=== PATIENT | male | born 1950 | race Caucasian/White ===

== ENCOUNTER 2020-01-16 15:33 | Inpatient (IN) ==
[2020-01-16 16:48] LABS: Basophils % 0.3 % (0.0-0.8); Hematocrit 45.6 VOL% (42.0-52.0); Hemoglobin 15.9 GM/DL (14.0-18.0); Immature Granulocytes % 0.7 %; Immature Granulocytes Absolute 0.02 #; Lymphocytes # 0.6 10*3/uL (1.4-4.0); Lymphocytes % 21.4 % (21.2-54.2); Mean Corpuscular HGB Conc 34.9 GM/DL (32-36); Mean Corpuscular Volume 89.4 FL (87-102); Mean Platelet Volume 10.3 FL (9.6-12.0); Monocytes % 13.7 % (1.7-12.7); Neutrophils % 63.9 % (38.7-73.9); Platelet Count 96 T/CUMM (130-400); Red Cell Distribution Width 11.6 % (9.3-17.3)
[2020-01-16 17:09] LABS: PT Patient Result 10.9 SECS (9.8-11.9)
[2020-01-16 17:26] LABS: Albumin 2.9 G/DL (3.4-5.0); Bilirubin,Total 0.9 MG/DL (0.2-1.0); Calcium 9.5 MG/DL (8.5-10.1); Ferritin 769.9 ng/ml (26-388); Total Protein 6.1 G/DL (6.4-8.3)
[2020-01-16] MEDS ORDERED: ZALEPLON 5 MG CAPSULE PO PRN (17:48)
[2020-01-16] MEDS ORDERED: DEXTROSE 50% 25 GM/50 ML VIAL IV PRN (17:48)
[2020-01-16] MEDS ORDERED: GLUCAGON 1 MG VIAL IM PRN (17:48)
[2020-01-16 17:50] LABS: Atypical Lymphocytes Few; Band Neutrophils 3 % (0-10); Lymphocytes 17 % (20-55); Segmented Neutrophils 71 % (50-85); Smudge Cells Few; Total Cells Counted 100
[2020-01-16 17:51] LABS: Platelet Estimate Decreased
[2020-01-16] MEDS: DEXAMETHASONE 10 MG/1 ML VIAL IV SCH (22:21)
[2020-01-16] MEDS: ENOXAPARIN 40 MG/0.4 ML SYRINGE SUBCUT SCH (22:21)
[2020-01-16] MEDS: cefTRIAXone 1,000 MG in SYRINGE 1 EACH IV SCH (22:22)
[2020-01-16] MEDS: SODIUM CHLORIDE 0.9% 1,000 ML IV SCH (22:35)
[2020-01-16] MEDS: AZITHROMYCIN INJ 500 MG in SODIUM CHLORIDE 0.9% 250 ML IV SCH (22:38)
[2020-01-16] MEDS: ACETAMINOPHEN 325 MG TABLET PO PRN (22:40)
[2020-01-17] MEDS: ALBUTEROL INHALER 18 GM INH SCH ×4 (01:46→19:48)
[2020-01-17 05:22] LABS: Basophils % 0.5 % (0.0-0.8); Hematocrit 44.9 VOL% (42.0-52.0); Hemoglobin 15.7 GM/DL (14.0-18.0); Immature Granulocytes % 0.5 %; Immature Granulocytes Absolute 0.01 #; Lymphocytes # 0.6 10*3/uL (1.4-4.0); Lymphocytes % 26.2 % (21.2-54.2); Mean Corpuscular Volume 90.3 FL (87-102); Mean Platelet Volume 9.9 FL (9.6-12.0); Monocytes % 7.9 % (1.7-12.7); Neutrophils % 64.9 % (38.7-73.9); Platelet Count 94 T/CUMM (130-400); Red Blood Count 4.97 MC/CUMM (3.8-5.5); Red Cell Distribution Width 11.8 % (9.3-17.3); White Blood Count 2.1 T/CUMM (4-12)
[2020-01-17 05:48] LABS: Albumin 2.7 G/DL (3.4-5.0); Calcium 10.2 MG/DL (8.5-10.1); Ferritin 799.4 ng/ml (26-388); Osmolality,Calculated 279.7 MOS/KG (273-304); Total Protein 6.5 G/DL (6.4-8.3)
[2020-01-17 05:49] LABS: Band Neutrophils 2 % (0-10); Lymphocytes 17 % (20-55); Microcytosis Slight; Platelet Estimate Decreased; Segmented Neutrophils 73 % (50-85); Total Cells Counted 100
[2020-01-17] MEDS: SODIUM CHLORIDE 0.9% 1,000 ML IV SCH ×3 (10:11→21:53)
[2020-01-17] MEDS: ZINC SULFATE 220 MG CAPSULE PO SCH (10:12)
[2020-01-17] MEDS: PANTOPRAZOLE 40 MG TABLET PO SCH (10:12)
[2020-01-17] MEDS: DEXAMETHASONE 10 MG/1 ML VIAL IV SCH (11:08)
[2020-01-17] MEDS: cefTRIAXone 1,000 MG in SYRINGE 1 EACH IV SCH (18:22)
[2020-01-17] MEDS: AZITHROMYCIN INJ 500 MG in SODIUM CHLORIDE 0.9% 250 ML IV SCH (18:22)
[2020-01-17] MEDS: ENOXAPARIN 40 MG/0.4 ML SYRINGE SUBCUT SCH (20:23)
[2020-01-18] MEDS: ALBUTEROL INHALER 18 GM INH SCH ×4 (01:45→19:28)
[2020-01-18] MEDS: SODIUM CHLORIDE 0.9% 1,000 ML IV SCH ×3 (01:49→15:18)
[2020-01-18 07:37] LABS: Hematocrit 40.7 VOL% (42.0-52.0); Hemoglobin 14.4 GM/DL (14.0-18.0); Immature Granulocytes % 0.3 %; Immature Granulocytes Absolute 0.02 #; Lymphocytes # 0.8 10*3/uL (1.4-4.0); Lymphocytes % 13.1 % (21.2-54.2); Mean Corpuscular HGB Conc 35.4 GM/DL (32-36); Mean Corpuscular Volume 89.8 FL (87-102); Monocytes % 10.1 % (1.7-12.7); Neutrophils % 76.5 % (38.7-73.9); Red Blood Count 4.53 MC/CUMM (3.8-5.5); Red Cell Distribution Width 11.7 % (9.3-17.3); White Blood Count 6.3 T/CUMM (4-12)
[2020-01-18 07:47] LABS: Platelet Count 117 T/CUMM (130-400)
[2020-01-18 07:59] LABS: Albumin 2.4 G/DL (3.4-5.0); Calcium 9.9 MG/DL (8.5-10.1); Ferritin 689.8 ng/ml (26-388); Total Protein 5.8 G/DL (6.4-8.3)
[2020-01-18] MEDS: DEXAMETHASONE 10 MG/1 ML VIAL IV SCH (08:20)
[2020-01-18] MEDS: PANTOPRAZOLE 40 MG TABLET PO SCH (08:21)
[2020-01-18] MEDS: AZITHROMYCIN 250 MG TABLET PO SCH (08:21)
[2020-01-18 08:52] LABS: Sedimentation Rate-Westergren 30 MM/HR (0-20)
[2020-01-18] MEDS: cefTRIAXone 1,000 MG in SYRINGE 1 EACH IV SCH (17:16)
[2020-01-18] MEDS: ENOXAPARIN 40 MG/0.4 ML SYRINGE SUBCUT SCH (20:55)
[2020-01-19] MEDS: ALBUTEROL INHALER 18 GM INH SCH ×4 (00:23→20:10)
[2020-01-19] MEDS: ACETAMINOPHEN 325 MG TABLET PO PRN ×2 (00:24→11:27)
[2020-01-19] MEDS: SODIUM CHLORIDE 0.9% 1,000 ML IV SCH ×2 (04:29→17:50)
[2020-01-19 06:12] LABS: Basophils % 0.1 % (0.0-0.8); Hematocrit 39.2 VOL% (42.0-52.0); Hemoglobin 13.8 GM/DL (14.0-18.0); Immature Granulocytes % 0.6 %; Immature Granulocytes Absolute 0.04 #; Lymphocytes % 14.2 % (21.2-54.2); Mean Corpuscular HGB Conc 35.2 GM/DL (32-36); Mean Corpuscular Volume 89.5 FL (87-102); Mean Platelet Volume 10.3 FL (9.6-12.0); Monocytes % 7.6 % (1.7-12.7); Neutrophils % 77.5 % (38.7-73.9); Platelet Count 131 T/CUMM (130-400); Red Blood Count 4.38 MC/CUMM (3.8-5.5); Red Cell Distribution Width 11.8 % (9.3-17.3); White Blood Count 7.1 T/CUMM (4-12)
[2020-01-19 06:36] LABS: Albumin 2.3 G/DL (3.4-5.0); Bilirubin,Total 0.8 MG/DL (0.2-1.0); Ferritin 692.6 ng/ml (26-388); Osmolality,Calculated 283.1 MOS/KG (273-304); Total Protein 5.7 G/DL (6.4-8.3)
[2020-01-19 06:37] LABS: Hypochromasia Slight; Microcytosis 1+; Platelet Estimate Adequate
[2020-01-19 07:37] LABS: Sedimentation Rate-Westergren 33 MM/HR (0-20)
[2020-01-19] MEDS: ZINC SULFATE 220 MG CAPSULE PO SCH (08:24)
[2020-01-19] MEDS: PANTOPRAZOLE 40 MG TABLET PO SCH (08:24)
[2020-01-19] MEDS: DEXAMETHASONE 10 MG/1 ML VIAL IV SCH (08:24)
[2020-01-19] MEDS: AZITHROMYCIN 250 MG TABLET PO SCH (08:25)
[2020-01-19] MEDS: ONDANSETRON 4 MG/2 ML VIAL IV PRN (11:37)
[2020-01-19] MEDS: cefTRIAXone 1,000 MG in SYRINGE 1 EACH IV SCH (17:39)
[2020-01-19] MEDS: ENOXAPARIN 40 MG/0.4 ML SYRINGE SUBCUT SCH (20:10)
[2020-01-20] MEDS: ALBUTEROL INHALER 18 GM INH SCH ×4 (01:49→20:05)
[2020-01-20] MEDS: ACETAMINOPHEN 325 MG TABLET PO PRN ×3 (02:02→19:44)
[2020-01-20 06:23] LABS: Basophils % 0.1 % (0.0-0.8); Hematocrit 40.7 VOL% (42.0-52.0); Lymphocytes # 0.8 10*3/uL (1.4-4.0); Mean Corpuscular HGB Conc 34.4 GM/DL (32-36); Mean Corpuscular Volume 91.7 FL (87-102); Monocytes % 5.4 % (1.7-12.7); Neutrophils % 85.5 % (38.7-73.9); Platelet Count 146 T/CUMM (130-400); Red Blood Count 4.44 MC/CUMM (3.8-5.5); Red Cell Distribution Width 11.9 % (9.3-17.3); White Blood Count 10.2 T/CUMM (4-12)
[2020-01-20] MEDS: SODIUM CHLORIDE 0.9% 1,000 ML IV SCH ×2 (06:34→09:06)
[2020-01-20 06:49] LABS: Anisocytosis Slight; Platelet Estimate Adequate
[2020-01-20 06:50] LABS: Albumin 2.2 G/DL (3.4-5.0); Bilirubin,Total 1.1 MG/DL (0.2-1.0); Ferritin 1050.3 ng/ml (26-388); Spherocytes Few; Total Protein 5.8 G/DL (6.4-8.3)
[2020-01-20 07:25] LABS: Sedimentation Rate-Westergren 43 MM/HR (0-20)
[2020-01-20] MEDS: PANTOPRAZOLE 40 MG TABLET PO SCH (08:25)
[2020-01-20] MEDS: DEXAMETHASONE 10 MG/1 ML VIAL IV SCH (08:25)
[2020-01-20] MEDS: PIPERACILLIN/TAZOBACTAM 3,375 MG in SODIUM CHLORIDE 0.9% 100 ML IV SCH ×2 (08:26→17:03)
[2020-01-20] MEDS ORDERED: REMDESIVIR 200 MG in SODIUM CHLORIDE 0.9% 210 ML IV ONE (11:00)
[2020-01-20] MEDS: ONDANSETRON 4 MG/2 ML VIAL IV PRN (19:44)
[2020-01-20] MEDS: ENOXAPARIN 40 MG/0.4 ML SYRINGE SUBCUT SCH (20:05)
[2020-01-21] MEDS: PIPERACILLIN/TAZOBACTAM 3,375 MG in SODIUM CHLORIDE 0.9% 100 ML IV SCH ×3 (00:39→16:56)
[2020-01-21] MEDS: ALBUTEROL INHALER 18 GM INH SCH ×4 (00:39→20:31)
[2020-01-21 06:33] LABS: Ferritin 1261.6 ng/ml (26-388)
[2020-01-21 07:18] LABS: Basophils % 0.2 % (0.0-0.8); Hematocrit 43.7 VOL% (42.0-52.0); Hemoglobin 14.8 GM/DL (14.0-18.0); Immature Granulocytes % 1.3 %; Immature Granulocytes Absolute 0.16 #; Lymphocytes # 0.6 10*3/uL (1.4-4.0); Lymphocytes % 4.9 % (21.2-54.2); Mean Corpuscular HGB Conc 33.9 GM/DL (32-36); Mean Corpuscular Volume 92.4 FL (87-102); Monocytes % 4.4 % (1.7-12.7); Neutrophils % 89.2 % (38.7-73.9); Platelet Count 166 T/CUMM (130-400); Red Blood Count 4.73 MC/CUMM (3.8-5.5); Red Cell Distribution Width 11.9 % (9.3-17.3); White Blood Count 12.2 T/CUMM (4-12)
[2020-01-21 08:11] LABS: Albumin 2.1 G/DL (3.4-5.0); Bilirubin,Total 0.9 MG/DL (0.2-1.0); Calcium 10.5 MG/DL (8.5-10.1); Osmolality,Calculated 286.1 MOS/KG (273-304); Total Protein 6.1 G/DL (6.4-8.3)
[2020-01-21 08:27] LABS: Band Neutrophils 1 % (0-10); Lymphocytes 2 % (20-55); Platelet Estimate Adequate; Polychromasia Slight; Segmented Neutrophils 94 % (50-85); Total Cells Counted 100
[2020-01-21] MEDS ORDERED: ZINC SULFATE 220 MG CAPSULE PO SCH (09:00)
[2020-01-21] MEDS: DEXAMETHASONE 10 MG/1 ML VIAL IV SCH (10:45)
[2020-01-21] MEDS: REMDESIVIR 100 MG in SODIUM CHLORIDE 0.9% 230 ML IV SCH (10:45)
[2020-01-21] MEDS: ZINC SULFATE 220 MG CAPSULE PO SCH (10:45)
[2020-01-21] MEDS: PANTOPRAZOLE 40 MG TABLET PO SCH (10:45)
[2020-01-21] MEDS: SODIUM CHLORIDE 0.9% 1,000 ML IV SCH (10:45)
[2020-01-21] MEDS: ACETAMINOPHEN 325 MG TABLET PO PRN ×2 (10:45→20:37)
[2020-01-21] MEDS ORDERED: ZINC SULFATE 220 MG CAPSULE PO ONE (11:00)
[2020-01-21] MEDS: ENOXAPARIN 40 MG/0.4 ML SYRINGE SUBCUT SCH (20:31)
[2020-01-22] MEDS: ALBUTEROL INHALER 18 GM INH SCH ×3 (01:25→14:52)
[2020-01-22] MEDS: PIPERACILLIN/TAZOBACTAM 3,375 MG in SODIUM CHLORIDE 0.9% 100 ML IV SCH ×3 (01:30→19:22)
[2020-01-22] MEDS: SODIUM CHLORIDE 0.9% 1,000 ML IV SCH ×2 (01:58→14:53)
[2020-01-22 06:18] LABS: Basophils % 0.2 % (0.0-0.8); Hematocrit 42.8 VOL% (42.0-52.0); Hemoglobin 14.9 GM/DL (14.0-18.0); Immature Granulocytes % 1.6 %; Immature Granulocytes Absolute 0.13 #; Lymphocytes # 0.5 10*3/uL (1.4-4.0); Lymphocytes % 5.8 % (21.2-54.2); Mean Corpuscular HGB Conc 34.8 GM/DL (32-36); Mean Corpuscular Volume 90.5 FL (87-102); Mean Platelet Volume 9.6 FL (9.6-12.0); Monocytes % 7.6 % (1.7-12.7); Neutrophils % 84.8 % (38.7-73.9); Platelet Count 194 T/CUMM (130-400); Red Blood Count 4.73 MC/CUMM (3.8-5.5); Red Cell Distribution Width 11.8 % (9.3-17.3); White Blood Count 8.2 T/CUMM (4-12)
[2020-01-22 06:53] LABS: Ferritin 1318.4 ng/ml (26-388)
[2020-01-22 07:01] LABS: Osmolality,Calculated 290.8 MOS/KG (273-304); Total Protein 5.3 G/DL (6.4-8.3)
[2020-01-22] MEDS: DEXAMETHASONE 10 MG/1 ML VIAL IV SCH (09:00)
[2020-01-22] MEDS: PANTOPRAZOLE 40 MG TABLET PO SCH (09:00)
[2020-01-22] MEDS: ACETAMINOPHEN 325 MG TABLET PO PRN (09:00)
[2020-01-22] MEDS: REMDESIVIR 100 MG in SODIUM CHLORIDE 0.9% 230 ML IV SCH (09:03)
[2020-01-22 13:14] LABS: ABG Base Excess 1.7 MMOL/L (-2.5-2.5); ABG HCO3 25.5 MMOL/L (20-26); ABG Oxygen Saturation 84.3 % (95-100); ABG PCO2 36.7 MM HG (35-48); ABG PH 7.447 (7.35-7.45); ABG PO2 49.5 MM HG (80-95); ABG TCO2 21.3 MMOL/L (23-27); Allen Test Positive; Pt O2 Delivery Device Other
[2020-01-22] MEDS ORDERED: LORazepam 2 MG/1 ML VIAL IV ONE (19:17)
[2020-01-22] MEDS: ENOXAPARIN 60 MG/0.6 ML SYRINGE SUBCUT SCH (19:43)
[2020-01-22] MEDS ORDERED: FUROSEMIDE 40 MG/4 ML VIAL IV ONE (20:05)
[2020-01-22] MEDS ORDERED: LORazepam 2 MG/1 ML VIAL IV PRN (20:08)
[2020-01-22] MEDS: ZINC GLUCONATE 50 MG TABLET PO SCH (20:46)
[2020-01-22] MEDS: ASCORBIC ACID 500 MG TABLET PO SCH (20:46)
[2020-01-22] MEDS ORDERED: LORazepam 2 MG/1 ML VIAL IV STA (21:11)
[2020-01-22] MEDS ORDERED: LABETALOL 20 MG/4 ML SYRINGE IV ONE (23:56)
[2020-01-22] MEDS ORDERED: hydrALAZINE 20 MG/1 ML VIAL IM PRN (23:56)
[2020-01-23] MEDS: PIPERACILLIN/TAZOBACTAM 3,375 MG in SODIUM CHLORIDE 0.9% 100 ML IV SCH ×3 (02:35→17:56)
[2020-01-23 05:44] LABS: Basophils % 0.2 % (0.0-0.8); Hematocrit 49.1 VOL% (42.0-52.0); Immature Granulocytes % 2.1 %; Immature Granulocytes Absolute 0.38 #; Lymphocytes # 0.6 10*3/uL (1.4-4.0); Mean Corpuscular HGB Conc 34.4 GM/DL (32-36); Mean Corpuscular Volume 91.3 FL (87-102); Mean Platelet Volume 9.4 FL (9.6-12.0); Monocytes % 8.6 % (1.7-12.7); Neutrophils % 86.1 % (38.7-73.9); Red Blood Count 5.38 MC/CUMM (3.8-5.5); Red Cell Distribution Width 11.9 % (9.3-17.3)
[2020-01-23 06:02] LABS: Hemoglobin 16.9 GM/DL (14.0-18.0); White Blood Count 18.5 T/CUMM (4-12)
[2020-01-23 06:03] LABS: Platelet Count 243 T/CUMM (130-400)
[2020-01-23 06:13] LABS: Lymphocytes 2 % (20-55); Platelet Estimate Adequate; Segmented Neutrophils 92 % (50-85); Total Cells Counted 100
[2020-01-23 06:20] LABS: Albumin 2.5 G/DL (3.4-5.0); Bilirubin,Total 1.3 MG/DL (0.2-1.0); Calcium 11.5 MG/DL (8.5-10.1)
[2020-01-23] MEDS: ENOXAPARIN 60 MG/0.6 ML SYRINGE SUBCUT SCH (08:56)
[2020-01-23] MEDS: ALBUTEROL INHALER 18 GM INH SCH ×4 (08:56→18:15)
[2020-01-23] MEDS: DEXAMETHASONE 10 MG/1 ML VIAL IV SCH (08:57)
[2020-01-23] MEDS: CHOLECALCIFEROL 1,000 UNIT TABLET PO SCH (08:58)
[2020-01-23] MEDS: ZINC GLUCONATE 50 MG TABLET PO SCH (08:58)
[2020-01-23] MEDS: FAMOTIDINE 20 MG/2 ML VIAL IV SCH (08:58)
[2020-01-23] MEDS: LORazepam 2 MG/1 ML VIAL IV PRN ×3 (08:59→16:59)
[2020-01-23] MEDS: CETIRIZINE 10 MG TABLET PO SCH (09:00)
[2020-01-23] MEDS ORDERED: METOPROLOL TARTRATE 5 MG/5 ML VIAL IV ONE ×3 (09:02→17:25)
[2020-01-23] MEDS: ASCORBIC ACID 500 MG TABLET PO SCH (09:15)
[2020-01-23] MEDS: PANTOPRAZOLE 40 MG TABLET PO SCH (09:15)
[2020-01-23 09:33] LABS: Ferritin 1396.3 ng/ml (26-388)
[2020-01-23] MEDS: REMDESIVIR 100 MG in SODIUM CHLORIDE 0.9% 230 ML IV SCH (09:54)
[2020-01-23] MEDS ORDERED: FUROSEMIDE 40 MG/4 ML VIAL IV ONE (10:00)
[2020-01-23] MEDS ORDERED: ETOMIDATE 20 MG/10 ML VIAL IV ONE ×2 (19:06→19:30)
[2020-01-23] MEDS ORDERED: SUCCINYLCHOLINE 200 MG/10 ML VIAL ONE (19:07)
[2020-01-23] MEDS ORDERED: SUCCINYLCHOLINE 200 MG/10 ML VIAL IV ONE (19:30)
[2020-01-23 20:39] LABS: ABG Base Excess 3.5 MMOL/L (-2.5-2.5); ABG HCO3 27.5 MMOL/L (20-26); ABG Oxygen Saturation 99.3 % (95-100); ABG PH 7.255 (7.35-7.45); Allen Test Positive; Pt O2 Delivery Device Ventilator
[2020-01-23 20:41] LABS: ABG PCO2 78.8 MM HG (35-48)
[2020-01-24 04:30] LABS: Basophils % 0.2 % (0.0-0.8); Hematocrit 45.6 VOL% (42.0-52.0); Hemoglobin 15.2 GM/DL (14.0-18.0); Immature Granulocytes % 1.2 %; Immature Granulocytes Absolute 0.17 #; Lymphocytes # 0.6 10*3/uL (1.4-4.0); Lymphocytes % 4.4 % (21.2-54.2); Mean Corpuscular HGB Conc 33.3 GM/DL (32-36); Mean Corpuscular Volume 92.7 FL (87-102); Mean Platelet Volume 10.1 FL (9.6-12.0); Monocytes % 7.6 % (1.7-12.7); Neutrophils % 86.6 % (38.7-73.9); Platelet Count 148 T/CUMM (130-400); Red Blood Count 4.92 MC/CUMM (3.8-5.5); Red Cell Distribution Width 12.2 % (9.3-17.3); White Blood Count 13.6 T/CUMM (4-12)
[2020-01-24 04:52] LABS: Lymphocytes 7 % (20-55); Microcytosis Slight; Segmented Neutrophils 92 % (50-85); Total Cells Counted 100
[2020-01-24 04:53] LABS: Platelet Estimate Adequate
[2020-01-24 04:56] LABS: ABG Base Excess 7.1 MMOL/L (-2.5-2.5); ABG HCO3 30.9 MMOL/L (20-26); ABG Oxygen Saturation 99.5 % (95-100); ABG PCO2 61.5 MM HG (35-48); ABG TCO2 29.5 MMOL/L (23-27); Allen Test Positive; Pt O2 Delivery Device Ventilator
[2020-01-24 05:01] LABS: Albumin 2.3 G/DL (3.4-5.0); Bilirubin,Total 0.9 MG/DL (0.2-1.0); Calcium 11.7 MG/DL (8.5-10.1); Ferritin 1361.2 ng/ml (26-388); Osmolality,Calculated 307.3 MOS/KG (273-304); Total Protein 6.2 G/DL (6.4-8.3)
[2020-01-24] MEDS: FAMOTIDINE 20 MG/2 ML VIAL IV SCH ×3 (05:42→21:28)
[2020-01-24] MEDS: ENOXAPARIN 60 MG/0.6 ML SYRINGE SUBCUT SCH ×3 (05:42→21:28)
[2020-01-24] MEDS: ASCORBIC ACID 500 MG TABLET PO SCH ×3 (05:42→21:29)
[2020-01-24] MEDS: ZINC GLUCONATE 50 MG TABLET PO SCH ×3 (05:43→21:29)
[2020-01-24] MEDS: PIPERACILLIN/TAZOBACTAM 3,375 MG in SODIUM CHLORIDE 0.9% 100 ML IV SCH ×2 (05:50→13:24)
[2020-01-24] MEDS: ALBUTEROL INHALER 18 GM INH SCH ×3 (06:22→13:24)
[2020-01-24] MEDS: CHOLECALCIFEROL 1,000 UNIT TABLET PO SCH (08:27)
[2020-01-24] MEDS: CETIRIZINE 10 MG TABLET PO SCH (08:27)
[2020-01-24] MEDS: DEXAMETHASONE 10 MG/1 ML VIAL IV SCH (08:28)
[2020-01-24] MEDS: LORazepam 2 MG/1 ML VIAL IV PRN ×2 (08:28→13:55)
[2020-01-24] MEDS: REMDESIVIR 100 MG in SODIUM CHLORIDE 0.9% 230 ML IV SCH (08:31)
[2020-01-24] MEDS ORDERED: PANTOPRAZOLE 40 MG VIAL IV SCH (09:00)
[2020-01-24] MEDS: FUROSEMIDE 40 MG/4 ML VIAL IV SCH (10:08)
[2020-01-24 12:00] LABS: Bilirubin,Urine Negative (Negative); Blood, Urine Negative (Negative); Glucose,Urine (UA) Negative (Negative); Hyaline Casts,Urine 10 /LPF (0-3); Ketones,Urine Negative (Negative); Mucus,Urine Occasional /LPF (Occasional); Nitrite,Urine Negative (Negative); Protein,Urine Negative; RBC,Urine 1 /HPF (0-4); Urine Appearance CLEAR (Clear); Urine Color Colorless (Yellow); Urine Specific Gravity 1.008 (1.001-1.035); Urine Urobilinogen < 2.0 EU/DL (0.2-1.0); WBC,Urine 1 /HPF (0-6)
[2020-01-24] MEDS: INSULIN REGULAR 100 UNIT/ML SUBCUT SCH (20:51)
[2020-01-25] MEDS: ACETAMINOPHEN 325 MG TABLET PO PRN ×3 (00:58→20:30)
[2020-01-25] MEDS: PIPERACILLIN/TAZOBACTAM 3,375 MG in SODIUM CHLORIDE 0.9% 100 ML IV SCH ×4 (01:00→21:18)
[2020-01-25] MEDS: ALBUTEROL INHALER 18 GM INH SCH ×5 (01:11→18:44)
[2020-01-25] MEDS: INSULIN REGULAR 100 UNIT/ML SUBCUT SCH ×4 (01:18→17:43)
[2020-01-25] MEDS ORDERED: MORPHINE 4 MG/1 ML VIAL ONE (02:48)
[2020-01-25] MEDS ORDERED: MORPHINE 4 MG/1 ML VIAL IV STA (02:51)
[2020-01-25 04:20] LABS: ABG Base Excess 11.1 MMOL/L (-2.5-2.5); ABG Oxygen Saturation 99.6 % (95-100); ABG PCO2 57.8 MM HG (35-48); ABG PH 7.431 (7.35-7.45); ABG TCO2 32.5 MMOL/L (23-27); Allen Test Positive; Pt O2 Delivery Device Ventilator
[2020-01-25 05:09] LABS: Basophils % 0.2 % (0.0-0.8); Hematocrit 45.1 VOL% (42.0-52.0); Hemoglobin 14.8 GM/DL (14.0-18.0); Immature Granulocytes % 1.2 %; Immature Granulocytes Absolute 0.14 #; Lymphocytes # 0.5 10*3/uL (1.4-4.0); Lymphocytes % 4.2 % (21.2-54.2); Mean Corpuscular HGB Conc 32.8 GM/DL (32-36); Mean Corpuscular Volume 96.6 FL (87-102); Mean Platelet Volume 10.3 FL (9.6-12.0); Monocytes % 6.4 % (1.7-12.7); Platelet Count 141 T/CUMM (130-400); Red Blood Count 4.67 MC/CUMM (3.8-5.5); Red Cell Distribution Width 12.1 % (9.3-17.3); White Blood Count 11.9 T/CUMM (4-12)
[2020-01-25 05:30] LABS: Albumin 2.1 G/DL (3.4-5.0); Calcium 11.7 MG/DL (8.5-10.1); Osmolality,Calculated 314.7 MOS/KG (273-304)
[2020-01-25 05:36] LABS: Hypochromasia 1+; Lymphocytes 7 % (20-55); Microcytosis Slight; Ovalocytes Slight; Platelet Estimate Adequate; Segmented Neutrophils 92 % (50-85); Total Cells Counted 100
[2020-01-25] MEDS: DEXAMETHASONE 10 MG/1 ML VIAL IV SCH (08:02)
[2020-01-25] MEDS: ENOXAPARIN 60 MG/0.6 ML SYRINGE SUBCUT SCH ×2 (08:02→19:48)
[2020-01-25] MEDS: FUROSEMIDE 40 MG/4 ML VIAL IV SCH (08:03)
[2020-01-25] MEDS: FAMOTIDINE 20 MG/2 ML VIAL IV SCH ×2 (08:03→20:02)
[2020-01-25] MEDS: CETIRIZINE 10 MG TABLET PO SCH (08:04)
[2020-01-25] MEDS: ZINC GLUCONATE 50 MG TABLET PO SCH ×2 (08:04→20:02)
[2020-01-25] MEDS: CHOLECALCIFEROL 1,000 UNIT TABLET PO SCH (08:04)
[2020-01-25] MEDS: ASCORBIC ACID 500 MG TABLET PO SCH ×2 (08:08→20:03)
[2020-01-25] MEDS ORDERED: POTASSIUM PHOSPHATE 30 MMOL in SODIUM CHLORIDE 0.9% 250 ML IV ONE (09:00)
[2020-01-25] MEDS ORDERED: DIGOXIN 0.5 MG/2 ML AMP IV ONE ×2 (13:32→15:00)
[2020-01-25] MEDS: fentaNYL 50 MCG/HR PATCH TRANSDERM SCH (13:53)
[2020-01-25] MEDS ORDERED: METOPROLOL TARTRATE 5 MG/5 ML VIAL IV ONE (17:01)
[2020-01-25] MEDS: METOPROLOL TARTRATE 5 MG/5 ML VIAL IV PRN (21:34)
[2020-01-26] MEDS ORDERED: SODIUM CHLORIDE 0.9% 500 ML IV ONE ×4 (00:35→17:54)
[2020-01-26] MEDS: METOPROLOL TARTRATE 5 MG/5 ML VIAL IV PRN ×2 (00:37→08:33)
[2020-01-26] MEDS: ACETAMINOPHEN 325 MG TABLET PO PRN ×2 (00:37→08:32)
[2020-01-26] MEDS: INSULIN REGULAR 100 UNIT/ML SUBCUT SCH ×4 (00:47→18:13)
[2020-01-26 00:58] LABS: ABG Base Excess 10.6 MMOL/L (-2.5-2.5); ABG HCO3 34.2 MMOL/L (20-26); ABG Oxygen Saturation 93.2 % (95-100); ABG PCO2 53.8 MM HG (35-48); ABG PH 7.449 (7.35-7.45); ABG PO2 64.7 MM HG (80-95); ABG TCO2 31.1 MMOL/L (23-27); Allen Test Positive; Pt O2 Delivery Device Ventilator
[2020-01-26] MEDS ORDERED: DILTIAZEM 50 MG/10 ML VIAL IV ONE (01:02)
[2020-01-26] MEDS ORDERED: DILTIAZEM 25 MG/5 ML VIAL IV ONE (01:03)
[2020-01-26] MEDS: dilTIAZem Drip 125 MG/125 ML PREMIX IV SCH ×2 (01:10→14:40)
[2020-01-26] MEDS: ALBUTEROL INHALER 18 GM INH SCH ×4 (01:11→19:32)
[2020-01-26 03:58] LABS: Basophils % 0.3 % (0.0-0.8); Eosinophils % 0.2 % (0.00-10.9); Hematocrit 51.7 VOL% (42.0-52.0); Hemoglobin 16.4 GM/DL (14.0-18.0); Immature Granulocytes % 1.5 %; Immature Granulocytes Absolute 0.19 #; Lymphocytes # 0.6 10*3/uL (1.4-4.0); Lymphocytes % 4.7 % (21.2-54.2); Mean Corpuscular HGB Conc 31.7 GM/DL (32-36); Mean Corpuscular Volume 97.2 FL (87-102); Mean Platelet Volume 11.4 FL (9.6-12.0); Monocytes % 5.4 % (1.7-12.7); Neutrophils % 87.9 % (38.7-73.9); Platelet Count 97 T/CUMM (130-400); Red Blood Count 5.32 MC/CUMM (3.8-5.5); Red Cell Distribution Width 12.2 % (9.3-17.3)
[2020-01-26 04:21] LABS: Calcium 11.8 MG/DL (8.5-10.1); Osmolality,Calculated 321.3 MOS/KG (273-304)
[2020-01-26 04:32] LABS: Allen Test Positive; Pt O2 Delivery Device Ventilator
[2020-01-26 04:36] LABS: ABG HCO3 34.7 MMOL/L (20-26); ABG Oxygen Saturation 95.1 % (95-100); ABG PCO2 54.2 MM HG (35-48); ABG PH 7.453 (7.35-7.45); ABG PO2 73.4 MM HG (80-95); ABG TCO2 31.2 MMOL/L (23-27)
[2020-01-26 04:52] LABS: Lymphocytes 3 % (20-55); Platelet Estimate Decreased; Segmented Neutrophils 92 % (50-85); Total Cells Counted 100
[2020-01-26] MEDS: PIPERACILLIN/TAZOBACTAM 3,375 MG in SODIUM CHLORIDE 0.9% 100 ML IV SCH (06:08)
[2020-01-26] MEDS ORDERED: ENOXAPARIN 60 MG/0.6 ML SYRINGE SUBCUT SCH (07:55)
[2020-01-26] MEDS: CHOLECALCIFEROL 1,000 UNIT TABLET PO SCH (08:27)
[2020-01-26] MEDS: DEXAMETHASONE 10 MG/1 ML VIAL IV SCH (08:27)
[2020-01-26] MEDS: FAMOTIDINE 20 MG/2 ML VIAL IV SCH ×2 (08:27→20:19)
[2020-01-26] MEDS: ZINC GLUCONATE 50 MG TABLET PO SCH ×2 (08:27→20:18)
[2020-01-26] MEDS: CETIRIZINE 10 MG TABLET PO SCH (08:27)
[2020-01-26] MEDS ORDERED: FONDAPARINUX 2.5 MG/0.5 ML SYRINGE SUBCUT SCH (08:30)
[2020-01-26] MEDS: APIXABAN 5 MG TABLET PER TUBE SCH ×2 (08:33→20:19)
[2020-01-26] MEDS: ASCORBIC ACID 500 MG TABLET PO SCH ×2 (08:39→20:18)
[2020-01-26] MEDS ORDERED: IBUPROFEN 100 MG/5 ML UDCUP PO PRN (10:28)
[2020-01-26] MEDS ORDERED: ENALAPRIL 2.5 MG/2 ML VIAL IV PRN (11:52)
[2020-01-26] MEDS ORDERED: ENALAPRIL 2.5 MG/2 ML VIAL IV ONE (11:53)
[2020-01-26] MEDS: CISATRACURIUM 200 MG in SODIUM CHLORIDE 0.9% 180 ML IV PRN ×3 (11:53→22:47)
[2020-01-26] MEDS ORDERED: lisinopriL 10 MG TABLET PO SCH (12:00)
[2020-01-26] MEDS ORDERED: NOREPINEPHRINE 4 MG/4 ML VIAL IV ONE (17:48)
[2020-01-26] MEDS: NOREPINEPHRINE 8 MG in SODIUM CHLORIDE 0.9% 242 ML IV PRN (18:04)
[2020-01-27] MEDS: INSULIN REGULAR 100 UNIT/ML SUBCUT SCH ×4 (00:38→18:22)
[2020-01-27] MEDS: ALBUTEROL INHALER 18 GM INH SCH ×4 (00:39→20:00)
[2020-01-27] MEDS: METOPROLOL TARTRATE 5 MG/5 ML VIAL IV PRN (01:00)
[2020-01-27] MEDS: dilTIAZem Drip 125 MG/125 ML PREMIX IV SCH (01:48)
[2020-01-27] MEDS: NOREPINEPHRINE 8 MG in SODIUM CHLORIDE 0.9% 242 ML IV PRN ×5 (01:48→17:41)
[2020-01-27] MEDS: CISATRACURIUM 200 MG in SODIUM CHLORIDE 0.9% 180 ML IV PRN ×4 (03:30→17:42)
[2020-01-27 04:42] LABS: Allen Test Positive; Pt O2 Delivery Device Ventilator
[2020-01-27 04:45] LABS: ABG Base Excess -2.8 MMOL/L (-2.5-2.5); ABG HCO3 22.1 MMOL/L (20-26); ABG Oxygen Saturation 98.1 % (95-100); ABG TCO2 32.3 MMOL/L (23-27)
[2020-01-27 04:51] LABS: ABG PH 7.058 (7.35-7.45)
[2020-01-27 07:58] LABS: Albumin 1.8 G/DL (3.4-5.0); Bilirubin,Total 0.9 MG/DL (0.2-1.0); Calcium 10.1 MG/DL (8.5-10.1); Osmolality,Calculated 335.3 MOS/KG (273-304); Total Protein 6.2 G/DL (6.4-8.3)
[2020-01-27 08:00] LABS: Basophils # 0.1 10*3/uL (0.0-0.2); Basophils % 0.2 % (0.0-0.8); Hematocrit 51.4 VOL% (42.0-52.0); Hemoglobin 15.3 GM/DL (14.0-18.0); Immature Granulocytes % 1.9 %; Immature Granulocytes Absolute 0.54 #; Lymphocytes # 0.8 10*3/uL (1.4-4.0); Lymphocytes % 2.8 % (21.2-54.2); Mean Corpuscular HGB Conc 29.8 GM/DL (32-36); Mean Corpuscular Volume 105.5 FL (87-102); Mean Platelet Volume 11.1 FL (9.6-12.0); Monocytes % 6.7 % (1.7-12.7); NRBC # 0.02 10*3/uL; Neutrophils % 88.4 % (38.7-73.9); Platelet Count 181 T/CUMM (130-400); Red Blood Count 4.87 MC/CUMM (3.8-5.5); Red Cell Distribution Width 12.4 % (9.3-17.3); White Blood Count 28.5 T/CUMM (4-12)
[2020-01-27 08:09] LABS: ABG Base Excess -0.3 MMOL/L (-2.5-2.5); ABG HCO3 33.8 MMOL/L (20-26); ABG Oxygen Saturation 98.5 % (95-100); ABG PO2 140.3 MM HG (80-95); ABG TCO2 37.2 MMOL/L (23-27)
[2020-01-27 08:11] LABS: ABG PCO2 112.5 MM HG (35-48); ABG PH 7.095 (7.35-7.45)
[2020-01-27 08:30] LABS: Band Neutrophils 2 % (0-10); Hypochromasia Slight; Lymphocytes 5 % (20-55); Segmented Neutrophils 88 % (50-85); Total Cells Counted 100
[2020-01-27] MEDS ORDERED: SODIUM CHLORIDE 0.9% 1,000 ML IV ONE ×2 (08:30→10:00)
[2020-01-27 08:31] LABS: Microcytosis Slight; Platelet Estimate Adequate
[2020-01-27] MEDS: DEXAMETHASONE 10 MG/1 ML VIAL IV SCH (08:56)
[2020-01-27] MEDS: FAMOTIDINE 20 MG/2 ML VIAL IV SCH ×2 (08:57→20:08)
[2020-01-27] MEDS: APIXABAN 5 MG TABLET PER TUBE SCH ×2 (08:57→20:08)
[2020-01-27] MEDS: ZINC GLUCONATE 50 MG TABLET PO SCH ×2 (08:57→20:08)
[2020-01-27] MEDS: CHOLECALCIFEROL 1,000 UNIT TABLET PO SCH (08:57)
[2020-01-27] MEDS: ASCORBIC ACID 500 MG TABLET PO SCH ×2 (08:57→20:08)
[2020-01-27] MEDS: CETIRIZINE 10 MG TABLET PO SCH (08:58)
[2020-01-27] MEDS ORDERED: NOREPINEPHRINE 4 MG/4 ML VIAL IV ONE (10:05)
[2020-01-27 11:03] LABS: ABG Base Excess -3.4 MMOL/L (-2.5-2.5); ABG HCO3 21.6 MMOL/L (20-26); ABG Oxygen Saturation 98.5 % (95-100); ABG TCO2 27.7 MMOL/L (23-27)
[2020-01-27 11:05] LABS: ABG PCO2 93.9 MM HG (35-48); ABG PH 7.117 (7.35-7.45)
[2020-01-27 14:15] LABS: ABG Base Excess -3.3 MMOL/L (-2.5-2.5); ABG HCO3 21.7 MMOL/L (20-26); ABG Oxygen Saturation 98.7 % (95-100)
[2020-01-27 14:19] LABS: ABG PCO2 88.7 MM HG (35-48); ABG PH 7.132 (7.35-7.45)
[2020-01-28] MEDS: CISATRACURIUM 200 MG in SODIUM CHLORIDE 0.9% 180 ML IV PRN ×7 (00:19→22:53)
[2020-01-28] MEDS: NOREPINEPHRINE 8 MG in SODIUM CHLORIDE 0.9% 242 ML IV PRN (00:19)
[2020-01-28] MEDS: INSULIN REGULAR 100 UNIT/ML SUBCUT SCH ×4 (00:46→17:34)
[2020-01-28] MEDS: ALBUTEROL INHALER 18 GM INH SCH ×2 (00:55→06:28)
[2020-01-28] MEDS: dilTIAZem Drip 125 MG/125 ML PREMIX IV SCH (01:23)
[2020-01-28 03:23] LABS: ABG Base Excess -11.9 MMOL/L (-2.5-2.5); ABG HCO3 15.3 MMOL/L (20-26); ABG Oxygen Saturation 99.2 % (95-100); ABG TCO2 26.5 MMOL/L (23-27)
[2020-01-28 03:25] LABS: ABG PH 6.924 (7.35-7.45)
[2020-01-28 03:31] LABS: Basophils % 0.2 % (0.0-0.8); Mean Platelet Volume 11.3 FL (9.6-12.0); Monocytes % 7.6 % (1.7-12.7)
[2020-01-28] MEDS: NOREPINEPHRINE 16 MG in SODIUM CHLORIDE 0.9% 234 ML IV PRN ×4 (03:37→23:45)
[2020-01-28] MEDS: PHENYLEPHRINE DRIP 40 MG/250 ML PREMIX IV PRN ×4 (03:58→15:39)
[2020-01-28 04:05] LABS: Basophils # 0.1 10*3/uL (0.0-0.2); Hematocrit 45.9 VOL% (42.0-52.0); Immature Granulocytes % 2.5 %; Immature Granulocytes Absolute 0.64 #; Lymphocytes # 0.9 10*3/uL (1.4-4.0); Lymphocytes % 3.7 % (21.2-54.2); Mean Corpuscular Volume 108.8 FL (87-102); NRBC # 0.02 10*3/uL; Platelet Count 153 T/CUMM (130-400); Red Blood Count 4.22 MC/CUMM (3.8-5.5); White Blood Count 25.3 T/CUMM (4-12)
[2020-01-28 04:06] LABS: Hemoglobin 13.3 GM/DL (14.0-18.0)
[2020-01-28 04:11] LABS: Band Neutrophils 1 % (0-10); Lymphocytes 4 % (20-55); Microcytosis Slight; Platelet Estimate Adequate; Segmented Neutrophils 91 % (50-85); Total Cells Counted 100
[2020-01-28 04:46] LABS: Albumin 1.5 G/DL (3.4-5.0); Bilirubin,Total 0.7 MG/DL (0.2-1.0); Calcium 9.6 MG/DL (8.5-10.1); Osmolality,Calculated 344.7 MOS/KG (273-304); Total Protein 5.7 G/DL (6.4-8.3)
[2020-01-28] MEDS ORDERED: SODIUM BICARBONATE 50 MEQ/50 ML VIAL IV ONE (06:03)
[2020-01-28] MEDS ORDERED: CALCIUM GLUCONATE 2,000 MG in SODIUM CHLORIDE 0.9% 100 ML IV ONE (06:03)
[2020-01-28] MEDS ORDERED: INSULIN REGULAR 100 UNIT/ML IV ONE (06:04)
[2020-01-28] MEDS ORDERED: DEXTROSE 50% 25 GM/50 ML VIAL IV ONE (06:04)
[2020-01-28] MEDS: BUDESONIDE 0.5 MG/2 ML NEB RESP TX SCH ×2 (08:05→19:08)
[2020-01-28] MEDS: DEXAMETHASONE 10 MG/1 ML VIAL IV SCH (08:25)
[2020-01-28] MEDS: FAMOTIDINE 20 MG/2 ML VIAL IV SCH ×2 (08:25→20:24)
[2020-01-28] MEDS: fentaNYL 50 MCG/HR PATCH TRANSDERM SCH (08:25)
[2020-01-28] MEDS: ASCORBIC ACID 500 MG TABLET PO SCH ×2 (08:26→20:25)
[2020-01-28] MEDS: ZINC GLUCONATE 50 MG TABLET PO SCH ×2 (08:26→20:25)
[2020-01-28] MEDS: CHOLECALCIFEROL 1,000 UNIT TABLET PO SCH (08:26)
[2020-01-28] MEDS: CETIRIZINE 10 MG TABLET PO SCH (08:26)
[2020-01-28] MEDS: APIXABAN 5 MG TABLET PER TUBE SCH ×2 (08:26→20:25)
[2020-01-28] MEDS ORDERED: ALBUMIN 5% 12.5 GM/250 ML VIAL IV ONE (08:42)
[2020-01-28] MEDS: MEROPENEM 500 MG in SODIUM CHLORIDE 0.9% 100 ML IV SCH ×2 (08:47→20:24)
[2020-01-28] MEDS ORDERED: ALBUMIN 25% 12.5 GM in PREMIX 1 EACH IV ONE (10:00)
[2020-01-28] MEDS ORDERED: LEVOFLOXACIN INJ 750 MG in PREMIX 1 EACH IV ONE (10:00)
[2020-01-28] MEDS: ALBUTEROL/IPRATROPIUM 3 ML NEB RESP TX SCH ×3 (11:00→19:08)
[2020-01-28] MEDS: HYDROCORTISONE 100 MG VIAL IV SCH ×2 (14:10→20:24)
[2020-01-28 14:34] LABS: ABG Base Excess -9.3 MMOL/L (-2.5-2.5); ABG HCO3 17.1 MMOL/L (20-26); ABG Oxygen Saturation 98.8 % (95-100); ABG TCO2 25.5 MMOL/L (23-27)
[2020-01-28 14:35] LABS: ABG PH 6.998 (7.35-7.45)
[2020-01-28] MEDS: PHENYLEPHRINE INJ 160 MG in SODIUM CHLORIDE 0.9% 234 ML IV PRN (18:03)
[2020-01-28 18:37] VITALS: BP 75/27
[2020-01-28] MEDS: SODIUM ACETATE 100 MEQ in STERILE WATER INJ 1,000 ML IV SCH (20:25)
[2020-01-29] MEDS: ALBUTEROL/IPRATROPIUM 3 ML NEB RESP TX SCH ×3 (00:23→07:03)
[2020-01-29] MEDS: INSULIN REGULAR 100 UNIT/ML SUBCUT SCH ×2 (00:24→05:54)
[2020-01-29] MEDS: PHENYLEPHRINE INJ 160 MG in SODIUM CHLORIDE 0.9% 234 ML IV PRN (01:36)
[2020-01-29] MEDS: dilTIAZem Drip 125 MG/125 ML PREMIX IV SCH (01:38)
[2020-01-29] MEDS: CISATRACURIUM 200 MG in SODIUM CHLORIDE 0.9% 180 ML IV PRN ×2 (01:57→05:47)
[2020-01-29] MEDS: HYDROCORTISONE 100 MG VIAL IV SCH (02:28)
[2020-01-29 04:36] LABS: ABG Base Excess -14.4 MMOL/L (-2.5-2.5); ABG HCO3 13.2 MMOL/L (20-26); ABG Oxygen Saturation 80.8 % (95-100); ABG PO2 62.3 MM HG (80-95); ABG TCO2 21.1 MMOL/L (23-27)
[2020-01-29 04:39] LABS: ABG PH 6.927 (7.35-7.45)
[2020-01-29 04:42] LABS: Basophils # 0.1 10*3/uL (0.0-0.2); Basophils % 0.2 % (0.0-0.8); Hematocrit 36.4 VOL% (42.0-52.0); Hemoglobin 10.9 GM/DL (14.0-18.0); Immature Granulocytes % 3.7 %; Immature Granulocytes Absolute 0.85 #; Lymphocytes # 0.5 10*3/uL (1.4-4.0); Lymphocytes % 2.1 % (21.2-54.2); Mean Corpuscular HGB Conc 29.9 GM/DL (32-36); Mean Corpuscular Volume 105.2 FL (87-102); Mean Platelet Volume 11.8 FL (9.6-12.0); Monocytes % 4.9 % (1.7-12.7); NRBC # 0.02 10*3/uL; Neutrophils % 89.1 % (38.7-73.9); Platelet Count 109 T/CUMM (130-400); Red Blood Count 3.46 MC/CUMM (3.8-5.5); Red Cell Distribution Width 12.7 % (9.3-17.3); White Blood Count 23.1 T/CUMM (4-12)
[2020-01-29 05:02] LABS: Band Neutrophils 2 % (0-10); Lymphocytes 4 % (20-55); Segmented Neutrophils 86 % (50-85); Total Cells Counted 100
[2020-01-29 05:03] LABS: Microcytosis Slight
[2020-01-29 05:07] LABS: Albumin 1.3 G/DL (3.4-5.0); Bilirubin,Total 0.8 MG/DL (0.2-1.0); Calcium 8.8 MG/DL (8.5-10.1); Osmolality,Calculated 344.1 MOS/KG (273-304); Total Protein 4.5 G/DL (6.4-8.3)
[2020-01-29] MEDS: NOREPINEPHRINE 16 MG in SODIUM CHLORIDE 0.9% 234 ML IV PRN (06:26)
[2020-01-29] MEDS: SODIUM ACETATE 100 MEQ in STERILE WATER INJ 1,000 ML IV SCH (07:03)
[2020-01-29] MEDS: BUDESONIDE 0.5 MG/2 ML NEB RESP TX SCH (07:04)
[2020-01-30] MEDS ORDERED: LEVOFLOXACIN INJ 500 MG in PREMIX 1 EACH IV SCH (10:00)
== END 2020-01-29 07:03 | disposition expired | DRG 207 ==
LOC: EDUNIT# → EDBD → N.ED 15:33 → N.EDINP 17:48 → SUATTDRO 17:48 → N.2E 18:31 → N.CC 01-22 19:38
PROVIDERS: ADMIT Hospitalist; ATTEND Internal Medicine